=== PATIENT | female | born 1990 | race Caucasian/White ===

== ENCOUNTER 2023-04-14 19:35 | Emergency (ER) | payer OTHER ==
[2023-04-14 19:45] VITALS: RESP 18; BMI 26.4
[2023-04-14 20:37] LABS: BASO % 0.4 % (0-2.0); HEMATOCRIT 35.6 % (32.4-45.2); HEMOGLOBIN 11.8 GM/dL (10.7-15.3); LYMPH % 26.8 % (8-40); MCH 29.7 pg (25.7-33.7); MCHC 33.2 g/dl (32.0-36.0); MEAN CELL VOLUME 89.4 fl (80-96); MEAN PLT VOLUME 7.2 fl (7.5-11.1); MONO % 7.2 % (3.8-10.2); NEUT % 64.6 % (42.8-82.8); PLATELET COUNT 341 10^3/uL (134-434); RBC 3.98 M/mm3 (3.60-5.2); RDW 13.8 % (11.6-15.6); WHITE BLOOD COUNT 14.6 K/mm3 (4.0-10.0)
[2023-04-14] MEDS ORDERED: ACETAMINOPHEN 1000 MG/100 ML BAG IVPB ONE (20:37)
[2023-04-14 20:38] LABS: HCG,QUALITATIVE URINE Positive
[2023-04-14 20:41] LABS: EPI CELLS 8 /uL (0-25.1); HYALINE CASTS 0 /uL (0-3.1); PH,URINE 6.5 (5.0-8.0); URINE APPEARANCE CLEAR; URINE BACTERIA 135 /uL (0-1359); URINE BILIRUBIN NEGATIVE (NEGATIVE); URINE COLOR YELLOW; URINE GLUCOSE (UA) NEGATIVE (NEGATIVE); URINE KETONE NEGATIVE (NEGATIVE); URINE LEUK ESTERASE NEGATIVE (NEGATIVE); URINE NITRITE NEGATIVE (NEGATIVE); URINE PROTEIN TRACE (NEGATIVE); URINE RBC 587 /uL (0-23.9); URINE WBC 15 /uL (0-25.8)
[2023-04-14] MEDS ORDERED: ACETAMINOPHEN INJECTION 100 ML IVPB ONE (21:15)
[2023-04-14 21:21] LABS: CALCIUM 8.6 mg/dL (8.5-10.1)
[2023-04-14 21:22] LABS: ALBUMIN 3.8 g/dl (3.4-5.0); BLOOD UREA NITROGEN 16.4 mg/dL (7-18)
[2023-04-14 21:25] LABS: CREATININE 0.6 mg/dL (0.55-1.3)
[2023-04-14 21:26] LABS: BILIRUBIN,TOTAL 0.4 mg/dL (0.2-1); TOT PROT 6.9 g/dl (6.4-8.2)
[2023-04-15 00:50] LABS: BASO % 0.9 % (0-2.0); EOS % 1.4 % (0-4.5); HEMATOCRIT 35.3 % (32.4-45.2); LYMPH % 31.2 % (8-40); MCH 30.3 pg (25.7-33.7); MCHC 34.1 g/dl (32.0-36.0); MEAN CELL VOLUME 88.9 fl (80-96); MEAN PLT VOLUME 7.2 fl (7.5-11.1); NEUT % 59.5 % (42.8-82.8); PLATELET COUNT 338 10^3/uL (134-434); RBC 3.97 M/mm3 (3.60-5.2); RDW 13.9 % (11.6-15.6); WHITE BLOOD COUNT 14.9 K/mm3 (4.0-10.0)
[2023-04-15 01:14] VITALS: BP 106/53; PULSE 60; TEMP 97.9
== END 2023-04-15 01:46 | disposition home or self-care (01) ==
LOC: JER 19:35
PROC: 3E033NZ Introduction of Analgesics, Hypnotics, Sedatives into Peripheral Vein, Percutaneous Approach (ICD-10-PCS; principal; 2023-04-14)
DX: O03.4 Incomplete spontaneous abortion without complication (principal); O26.891 Other specified pregnancy related conditions, first trimester; R10.30 Lower abdominal pain, unspecified; Z3A.08 8 weeks gestation of pregnancy
CPT/HCPCS: 36415; 76817-TC; 80053; 81003; 84702; 84703; 85025; 86850; 86900; 86901; 87086; 99284-25

== ENCOUNTER 2023-10-15 21:51 | Emergency (ER) | payer OTHER ==
[2023-10-15 21:55] VITALS: BP 103/60; PULSE 74; RESP 20; TEMP 98.2; BMI 27.8
== END 2023-10-15 22:41 | disposition home or self-care (01) ==
LOC: JERFT 21:51
DX: O9A.212 Injury, poisoning and certain other consequences of external causes complicating pregnancy, second trimester (principal); S92.341A Displaced fracture of fourth metatarsal bone, right foot, initial encounter for closed fracture; W22.8XXA Striking against or struck by other objects, initial encounter; Z3A.18 18 weeks gestation of pregnancy
CPT/HCPCS: 73660-TC-FY; 99283-25

== ENCOUNTER 2024-02-27 17:20 | Observation (INO) | payer OTHER ==
[2024-02-27] MEDS: LACTATED RINGERS SOLUTION 1,000 ML IV SCH (19:30)
[2024-02-27] MEDS ORDERED: ceFAZolin SODIUM 1 GM VIAL ONE (19:43)
[2024-02-27] MEDS: CEFAZOLIN SODIUM 2 GM in SODIUM CHLORIDE 100 ML IVPB ONE (20:05)
[2024-02-27 20:06] LABS: EPI CELLS 24 /uL (0-25.1); HYALINE CASTS 0 /uL (0-3.1); URINE APPEARANCE CLEAR; URINE BACTERIA 1908 /uL (0-1359); URINE BILIRUBIN NEGATIVE (NEGATIVE); URINE COLOR YELLOW; URINE GLUCOSE (UA) NEGATIVE (NEGATIVE); URINE KETONE NEGATIVE (NEGATIVE); URINE LEUK ESTERASE TRACE (NEGATIVE); URINE NITRITE NEGATIVE (NEGATIVE); URINE PROTEIN NEGATIVE (NEGATIVE); URINE RBC 5 /uL (0-23.9); URINE WBC 28 /uL (0-25.8)
[2024-02-27 20:17] LABS: BASO % 0.4 % (0-2.0); EOS % 0.6 % (0-4.5); HEMATOCRIT 31.9 % (32.4-45.2); HEMOGLOBIN 10.9 GM/dL (10.7-15.3); LYMPH % 25.5 % (8-40); MCH 30.1 pg (25.7-33.7); MCHC 34.1 g/dl (32.0-36.0); MEAN CELL VOLUME 88.3 fl (80-96); MEAN PLT VOLUME 8.4 fl (7.5-11.1); NEUT % 68.5 % (42.8-82.8); PLATELET COUNT 274 10^3/uL (134-434); RBC 3.61 M/mm3 (3.60-5.2); WHITE BLOOD COUNT 9.9 K/mm3 (4.0-10.0)
[2024-02-27] MEDS: LACTATED RINGERS SOLUTION 1,000 ML IV ONE (20:30)
[2024-02-27 20:56] LABS: POTASSIUM 3.8 mmol/L (3.5-5.1)
[2024-02-27 20:58] LABS: CALCIUM 8.2 mg/dL (8.5-10.1)
[2024-02-27 20:59] LABS: ALBUMIN 2.4 g/dl (3.4-5.0); BLOOD UREA NITROGEN 6.1 mg/dL (7-18)
[2024-02-27] MEDS: morphine SULFATE 4 MG/ML VIAL IVPB ONE (21:00)
[2024-02-27] MEDS ORDERED: morphine SULFATE 4 MG/ML VIAL ONE (21:00)
[2024-02-27 21:02] LABS: CREATININE 0.7 mg/dL (0.55-1.3)
[2024-02-27 21:03] LABS: BILIRUBIN,TOTAL 0.4 mg/dL (0.2-1); TOT PROT 5.6 g/dl (6.4-8.2)
[2024-02-27 22:28] VITALS: BMI 29.6
[2024-02-27] MEDS ORDERED: ACETAMINOPHEN INJECTION 100 ML IVPB ONE (23:04)
[2024-02-27] MEDS: ACETAMINOPHEN 1000 MG/100 ML BAG IVPB ONE (23:05)
[2024-02-28] MEDS: morphine SULFATE 4 MG/ML VIAL IVPB ONE (00:40)
[2024-02-28] MEDS ORDERED: morphine SULFATE 4 MG/ML VIAL ONE (00:41)
[2024-02-28] MEDS ORDERED: CEFAZOLIN SODIUM 2 GM VIAL IVPB SCH (02:00)
[2024-02-28 02:08] VITALS: RESP 18
[2024-02-28] MEDS: LACTATED RINGERS SOLUTION 1,000 ML/1,000 ML INFUS.BAG IV SCH (02:30)
[2024-02-28] MEDS ORDERED: ceFAZolin SODIUM 1 GM VIAL ONE (03:50)
[2024-02-28] MEDS: CEFAZOLIN SODIUM 2 GM VIAL IVPB SCH (04:00)
[2024-02-28] MEDS ORDERED: ACETAMINOPHEN INJECTION 100 ML IVPB ONE ×2 (08:38→18:00)
[2024-02-28] MEDS: ACETAMINOPHEN 1000 MG/100 ML BAG IVPB ONE (08:44)
[2024-02-28] MEDS ORDERED: CEFAZOLIN SODIUM 2 GM VIAL ONE ×2 (09:54→18:11)
[2024-02-28] MEDS ORDERED: HYDROmorphone HCl 2 MG/ML VIAL ONE (11:28)
[2024-02-28] MEDS: HYDROmorphone HCl 2 MG/ML VIAL IVPB ONE (11:33)
[2024-02-28 19:10] VITALS: BP 117/69; PULSE 55; TEMP 97.3
[2024-02-28] MEDS ORDERED: ACETAMINOPHEN 1000 MG/100 ML BAG IVPB ONE (19:15)
== END 2024-02-28 20:18 | disposition home or self-care (01) ==
LOC: JDEL 17:20 → JLDR 20:50 → INTOOBSV 20:50
PROVIDERS: ADMIT Obstetrics & Gynecology; ATTEND Obstetrics & Gynecology
PROC: 3E033NZ Introduction of Analgesics, Hypnotics, Sedatives into Peripheral Vein, Percutaneous Approach (ICD-10-PCS; principal; 2024-02-27)
PROC: 3E03329 Introduction of Other Anti-infective into Peripheral Vein, Percutaneous Approach (ICD-10-PCS; 2024-02-27)
PROC: 3E0337Z Introduction of Electrolytic and Water Balance Substance into Peripheral Vein, Percutaneous Approach (ICD-10-PCS; 2024-02-27)
DX: N20.0 Calculus of kidney (principal); E03.9 Hypothyroidism, unspecified; Z3A.36 36 weeks gestation of pregnancy; N28.1 Cyst of kidney, acquired
CPT/HCPCS: 36415; 76775-TC; 80053; 81003; 85025; 87086; 96361; 96365; 96375; 96376; G0378; J0131

== ENCOUNTER 2024-06-03 15:45 | Emergency (ER) | payer OTHER ==
[2024-06-03 15:57] VITALS: BP 95/60; PULSE 52; RESP 18; TEMP 97.4; BMI 26.6
[2024-06-03] MEDS ORDERED: IBUPROFEN 400 MG TABLET (FP) PO ONE (16:31)
[2024-06-03] MEDS: IBUPROFEN 400 MG TABLET (FP) PO ONE (16:38)
== END 2024-06-03 17:11 | disposition home or self-care (01) ==
LOC: JERFT 15:45
DX: S92.512A Displaced fracture of proximal phalanx of left lesser toe(s), initial encounter for closed fracture (principal); W22.8XXA Striking against or struck by other objects, initial encounter; Y93.01 Activity, walking, marching and hiking
CPT/HCPCS: 73630-TC-LT; 99283-25